=== PATIENT | female | born 1945 | race Caucasian/White ===

== ENCOUNTER 2016-11-19 09:09 | Day surgery (SDC) | payer OTHER, MEDICARE ==
[2016-11-19] MEDS ORDERED: TETRACAINE 0.5% OPHTH 1 DOSE AFFEYE ONE ×4 (09:45→14:18)
[2016-11-19] MEDS ORDERED: VIGAMOX 0.5% OPHTH 1 DOSE AFFEYE ONE ×3 (09:50→10:00)
[2016-11-19] MEDS ORDERED: NS 500 ML IV 500 ML IV ONE (09:51)
[2016-11-19] MEDS ORDERED: PROLENSA OPHTH 1 DOSE AFFEYE ONE (10:01)
[2016-11-19] MEDS ORDERED: ALPHAGAN-P OPHTH 1 DOSE AFFEYE ONE (10:02)
[2016-11-19] MEDS ORDERED: CYCLOGYL 1% OPHTH 1 DOSE OP ONE ×3 (10:03→10:05)
[2016-11-19] MEDS ORDERED: MYDRIACIL OPHTH 1 DOSE AFFEYE ONE ×3 (10:03→10:05)
[2016-11-19] MEDS ORDERED: AK-DILATE 2.5% OPHTH 1 DOSE OP ONE ×3 (10:03→10:05)
[2016-11-19] MEDS ORDERED: VERSED IVP ONE ×2 (13:42→13:54)
[2016-11-19] MEDS ORDERED: ALCAINE or OPHTHETIC 1 DOSE AFFEYE ONE ×2 (13:43→13:55)
[2016-11-19] MEDS ORDERED: AK-DILATE 10% OPHTH 1 DOSE AFFEYE ONE ×2 (13:43→13:59)
[2016-11-19] MEDS ORDERED: BETADINE OPHTH SOLN 5% EACHEYE ONE (14:17)
[2016-11-19] MEDS ORDERED: XYLOCAINE-MPF 1% IJ ONE (14:18)
[2016-11-19] MEDS ORDERED: DUOVISC IO ONE (14:18)
[2016-11-19] MEDS ORDERED: ADRENALINE CHL INJ IJ ONE (14:18)
[2016-11-19] MEDS ORDERED: VIGAMOX 0.5% AFFEYE ONE (14:24)
[2016-11-19] MEDS ORDERED: BSS OPHTH (PLAIN) 500 ML with VANCOMYCIN HCL 500 MG VIAL 25 MG, ADRENALINE CHL INJ 1 MG IR ONE ×3 (14:24)
[2016-11-19 15:01] VITALS: BP 155/68
[2016-11-19] MEDS ORDERED: VERSED ONE (15:54)
== END 2016-11-19 15:00 | disposition home or self-care (01) ==
LOC: SURG1 09:09
PROVIDERS: ATTEND Ophthalmology
PROC: 08DK3ZZ Extraction of Left Lens, Percutaneous Approach (ICD-10-PCS; principal; 2016-11-19 20:00)
PROC: 08RK3JZ Replacement of Left Lens with Synthetic Substitute, Percutaneous Approach (ICD-10-PCS; principal; 2016-11-19 20:00)
DX: H25.12 Age-related nuclear cataract, left eye (principal); H25.012 Cortical age-related cataract, left eye; H52.222 Regular astigmatism, left eye
CPT/HCPCS: 99100; A4217; J0170; J2250; J3370

== ENCOUNTER 2016-12-10 06:57 | Day surgery (SDC) | payer OTHER, MEDICARE ==
[2016-12-10] MEDS ORDERED: NS 500 ML IV 500 ML IV ONE (07:16)
[2016-12-10] MEDS ORDERED: TETRACAINE 0.5% OPHTH 1 DOSE AFFEYE ONE ×3 (07:20→09:31)
[2016-12-10] MEDS ORDERED: VIGAMOX 0.5% OPHTH 1 DOSE AFFEYE ONE ×5 (07:21→09:48)
[2016-12-10] MEDS ORDERED: PROLENSA OPHTH 1 DOSE AFFEYE ONE (07:32)
[2016-12-10] MEDS ORDERED: ALPHAGAN-P OPHTH 1 DOSE AFFEYE ONE (07:33)
[2016-12-10] MEDS ORDERED: CYCLOGYL 1% OPHTH 1 DOSE OP ONE ×4 (07:34→07:37)
[2016-12-10] MEDS ORDERED: MYDRIACIL OPHTH 1 DOSE AFFEYE ONE ×4 (07:34→07:37)
[2016-12-10] MEDS ORDERED: AK-DILATE 2.5% OPHTH 1 DOSE OP ONE ×4 (07:34→07:37)
[2016-12-10] MEDS ORDERED: NS 1/2 1000 ML IV 500 ML IV ONE (07:44)
[2016-12-10] MEDS ORDERED: VERSED ONE (08:41)
[2016-12-10] MEDS ORDERED: VERSED IVP ONE ×2 (09:21→09:28)
[2016-12-10] MEDS ORDERED: ALCAINE or OPHTHETIC 1 DOSE AFFEYE ONE (09:22)
[2016-12-10] MEDS ORDERED: AK-DILATE 10% OPHTH 1 DOSE AFFEYE ONE (09:24)
[2016-12-10] MEDS ORDERED: BETADINE OPHTH SOLN 5% EACHEYE ONE (09:31)
[2016-12-10] MEDS ORDERED: ADRENALINE CHL INJ IJ ONE (09:37)
[2016-12-10] MEDS ORDERED: XYLOCAINE-MPF 1% IJ ONE (09:37)
[2016-12-10] MEDS ORDERED: BSS OPHTH (PLAIN) 500 ML with VANCOMYCIN HCL 500 MG VIAL 25 MG, ADRENALINE CHL INJ 1 MG IR ONE ×3 (09:37)
[2016-12-10] MEDS ORDERED: DUOVISC IO ONE (09:37)
[2016-12-10 12:09] VITALS: BP 142/78
== END 2016-12-10 10:15 | disposition home or self-care (01) ==
LOC: SURG1 06:57
PROVIDERS: ATTEND Ophthalmology
PROC: 08DJ3ZZ Extraction of Right Lens, Percutaneous Approach (ICD-10-PCS; principal; 2016-12-10 07:30)
PROC: 08RJ3JZ Replacement of Right Lens with Synthetic Substitute, Percutaneous Approach (ICD-10-PCS; principal; 2016-12-10 07:30)
DX: H25.11 Age-related nuclear cataract, right eye (principal); H25.011 Cortical age-related cataract, right eye; H52.221 Regular astigmatism, right eye
CPT/HCPCS: 99100; A4217; J0170; J2250; J3370